=== PATIENT | male | born 1965 | race Caucasian/White ===

== ENCOUNTER 2023-06-11 13:37 | Outpatient (CLI) | payer BC, SELFPAY ==
--- NOTE | 2023-06-11 14:30 | NEURO_ITS ---
Impression: # Complains of left upper extremity pain. Not diabetic. # No Carpal Tunnel Syndrome or ulnar neuropathy. # Normal needle/EMG exam, proximal muscles as well,examined considering the possibility of cervical etiology.. # Clinical correlation recommended. Nerve Conduction Studies Anti Sensory Summary Table Stim Site NR Peak (ms) P-T Amp (?V) Site1 Site2 Delta-P (ms) Dist (cm) Brent (m/s) Left Median Anti Sensory (2-3nd Digit) Wrist 3.3 29.8 Wrist 2-3nd Digit 3.3 14.0 42 Wrist 3.3 36.9 Wrist 2-3nd Digit 3.3 14.0 42 Left Radial Anti Sensory (Base 1st Digit) Wrist 2.2 31.3 Wrist Base 1st Digit 2.2 0.0 Left Ulnar Anti Sensory (5th Digit) Wrist 2.6 42.4 Wrist 5th Digit 2.6 14.0 54 Motor Summary Table Stim Site NR Onset (ms) O-P Amp (mV) Site1 Site2 Delta-0 (ms) Dist (cm) Brent (m/s) Left Median Motor (Abd Poll Brev) Wrist 3.2 6.8 Elbow Wrist 5.3 31.0 58 Elbow 8.5 6.4 Left Ulnar Motor (Abd Dig Minimi) Wrist 2.8 7.9 A Elbow Wrist 5.4 33.0 61 A Elbow 8.2 7.1 F Wave Studies NR F-Lat (ms) L-R F-Lat (ms) Left Median (Mrkrs) (Abd Poll Brev) 31.29 Left Ulnar (Mrkrs) (Abd Dig Min) 31.33 EMG Side Muscle Nerve Root Ins Act Fibs Amp Dur Recrt Comment Left 1stDorInt Ulnar C8-T1 Nml Nml Nml Nml Nml Left Ext Indicis Radial (Post Int) C7-8 Nml Nml Nml Nml Nml Left Ext Digitorum Radial (Post Int) C7-8 Nml Nml Nml Nml Nml Left BrachioRad Radial C5-6 Nml Nml Nml Nml Nml Left PronatorTeres Median C6-7 Nml Nml Nml Nml Nml Left Abd Poll Brev Median C8-T1 Nml Nml Nml Nml Nml MTDD
== END 2023-06-11 13:38 | disposition home or self-care (01) ==
LOC: ANHNEURO 13:41
PROVIDERS: Visit Provider Orthopaedic Surgery
DX: R20.2 Paresthesia of skin (principal)
CPT/HCPCS: 95886; 95909